=== PATIENT | female | born 1965 | race African-American/Black ===

== ENCOUNTER 2017-08-05 13:55 | Inpatient (IN) | payer OTHER ==
[2017-08-05 14:59] VITALS: BMI 20.3
--- NOTE | 2017-08-05 16:45 | HP ---
CIWA Score - CIWA Score Nausea/Vomitin-Mild Nausea/No Vomiting Muscle Tremors: 4-Moderate,w/Arms Extend Anxiety: 4-Mod. Anxious/Guarded Agitation: 4-Moderately Restless Paroxysmal Sweats: 1-Minimal Palms Moist Orientation: 0-Oriented Tacttile Disturbances: 0-None Auditory Disturbances: 0-None Visual Disturbances: 0-None Headache: 1-Very Mild CIWA-Ar Total Score: 15 Admission ROS BHS - HPI Chief Complaint: withdrawal sx Allergies/Adverse Reactions: Allergies Allergy/AdvReac Type Severity Reaction Status Date / Time No Known Allergies Allergy Verified 08/04/17 11:10 History of Present Illness: 51 YEARS OLD FEMALE WITH LONG HISTORY OF ALCOHOL NICOTINE DEPENDENCE, MOTHER 02/12/17, CUT RIGHT WRIST 03/2017 TREATED AT [facility] HAS COPD AND +PPD, GERD, AND DEPRESSION IS ADMITTED TO DETOX Exam Limitations: No Limitations - Ebola screening Have you traveled outside of the country in the last 21 days: No Have you had contact with anyone from an Ebola affected area: No Have you been sick,other than usual withdrawal symptoms: No Do you have a fever: No - Review of Systems Constitutional: Loss of Appetite, Changes in sleep, Unintentional Wgt. Loss, Unexplained wgt Loss EENT: reports: Blurred Vision (EYE GLASSES AT HOME), Dental Problems (UPPER LOWER AT HOME) Respiratory: reports: SOB with Exertion Cardiac: reports: No Symptoms Reported GI: reports: Nausea, Poor Fluid Intake, Indigestion, Abdominal cramping : reports: No Symptoms Reported Musculoskeletal: reports: Back Pain Integumentary: reports: Change in Color (RIGHT WRIST TENDON REPAIRED) Neuro: reports: Tremors Endocrine: reports: No Symptoms Reported Hematology: reports: No Symptoms Reported Psychiatric: reports: Judgement Intact, Orientated x3, Anxious, Depressed Other Systems: Reviewed and Negative Patient History - Patient Medical History Hx Anemia: Yes Hx Asthma: No Hx Chronic Obstructive Pulmonary Disease (COPD): Yes Hx Cancer: No Hx Cardiac Disorders: No Hx Congestive Heart Failure: No Hx Hypertension: No Hx Hypercholesterolemia: No Hx Pacemaker: No HX Cerebrovascular Accident: No Hx Seizures: No Hx Dementia: No Hx Diabetes: No Hx Gastrointestinal Disorders: No Hx Liver Disease: No Hx Genitourinary Disorders: No Hx Sexually Transmitted Disorders: No Hx Renal Disease (ESRD): No Hx Thyroid Disease: No Hx Human Immunodeficiency Virus (HIV): No Hx Hepatitis C: Yes Hx Depression: Yes Hx Suicide Attempt: Yes (03/2017 CUT RIGHT WRIST) Hx Bipolar Disorder: No Hx Schizophrenia: No - Patient Surgical History Past Surgical History: Yes Hx Neurologic Surgery: No Hx Cataract Extraction: No Hx Cardiac Surgery: No Hx Lung Surgery: No Hx Breast Surgery: No Hx Breast Biopsy: No Hx Abdominal Surgery: No Hx Appendectomy: No Hx Cholecystectomy: No Hx Genitourinary Surgery: No Hx Section: No Hx Orthopedic Surgery: No Hx Hysterectomy: No Other Surgical History: Sx for fibroids in 2003 Sx R wrist tendon repair in Anesthesia Reaction: No - PPD History Previous Implant?: Yes Documented Results: Negative w/o proof Implanted On Prior [facility] Admission?: No PPD to be Administered?: Yes - Reproductive History Patient is a Female of Child Bearing Age (11 -55 yrs old): Yes Last Menstrual Period: 08/05/08 Patient : No - Smoking Cessation Smoking history: Current every day smoker Have you smoked in the past 12 months: Yes Aproximately how many cigarettes per day: 15 Hx Chewing Tobacco Use: No Initiated information on smoking cessation: Yes 'Breaking Loose' booklet given: 08/05/17 - Substance & Tx. History Hx Alcohol Use: Yes Hx Substance Use: No Substance Use Type: Alcohol Hx Substance Use Treatment: Yes (2016 [facility] - Substances Abused Alcohol Route: Oral Frequency: Daily Amount used: 2-3 pints SYLVIE Age of first use: 19 Date of Last Use: 08/05/17 Family Disease History - Family Disease History Family Disease History: Diabetes: Mother (), Brother, [place]: Father ( ), Mother, Other: Father, Mother Admission Physical Exam S - Vital Signs Vital Signs: Vital Signs - 24 hr 08/05/17 14:54 Temperature 98.2 F Pulse Rate 90 Respiratory 22 Rate Blood Pressure 119/73 - Physical General Appearance: Yes: Appropriately Dressed, Alcohol on Breath, Thin, Tremorous, Irritable, Sweating, Anxious HEENTM: Yes: Hearing grossly Normal, Normal ENT Inspection, Normocephalic, Normal Voice Respiratory: Yes: Chest Non-Tender, No Respiratory Distress, No Accessory Muscle Use, Hyperresonant, Inspiration Neck: Yes: Supple, Trachea in good position Breast: Yes: Breasts Symetrical Cardiology: Yes: Regular Rhythm, S1, S2, Tachycardia Abdominal: Yes: Non Tender, Soft, Decreased BS Genitourinary: Yes: Within Normal Limits Back: Yes: Normal Inspection Musculoskeletal: Yes: full range of Motion, Gait Steady, Back pain Extremities: Yes: Normal Range of Motion, Non-Tender, Tremors Neurological: Yes: Fully Oriented, Alert, Motor Strength 5/5, Normal Response, Depressed Affect Integumentary: Yes: Warm Lymphatic: Yes: Within Normal Limits - Diagnostic (1) Alcohol dependence with uncomplicated withdrawal Current Visit: Yes Status: Acute (2) Nicotine dependence Current Visit: Yes Status: Acute Qualifiers: Nicotine product type: cigarettes Substance use status: in withdrawal Qualified Code(s): F17.213 - Nicotine dependence, cigarettes, with withdrawal (3) COPD (chronic obstructive pulmonary disease) Current Visit: Yes Status: Chronic Qualifiers: COPD type: emphysema Emphysema type: unilateral Qualified Code(s ): J43.0 - Unilateral pulmonary emphysema [MacLeod's syndrome] (4) Positive PPD Current Visit: Yes Status: Resolved (5) Weight loss Current Visit: Yes Status: Acute (6) GERD (gastroesophageal reflux disease) Current Visit: Yes Status: Chronic Qualifiers: Esophagitis presence: without esophagitis Qualified Code(s): K21.9 - Gastro-esophageal reflux disease without esophagitis (7) Muscle spasm Current Visit: Yes Status: Chronic (8) Hepatitis C carrier Current Visit: Yes Status: Chronic (9) Depression (emotion) Current Visit: Yes Status: Suspected Qualifiers: Depression Type: dysthymia Qualified Code(s): F34.1 - Dysthymic disorder Cleared for Admission [facility] - Detox or Rehab [facility] Level of Care: Medically Managed Detox Regimen/Protocol: Librium [facility] Breath Alcohol Content Breath Alcohol Content: 0.056 Urine Pregancy Test - Result Urine Test Results: Negative- NO Line Present Urine Drug Screen - Results Drug Screen Negative: No Urine Drug Screen Results: BZO-Benzodiazepines
[2017-08-05] MEDS ORDERED: IBUPROFEN 400 MG TABLET (FP) PO PRN (17:04)
[2017-08-05] MEDS ORDERED: guaiFENesin/D-METHORPHAN HB 10 ML UNIT-DOSE CUPS PO PRN (17:04)
[2017-08-05] MEDS ORDERED: LOPERAMIDE HCL 2 MG CAPSULE PO PRN (17:04)
[2017-08-05] MEDS ORDERED: MAGNESIUM CITRATE 300 ML BOTTLE PO PRN (17:04)
[2017-08-05] MEDS ORDERED: MENTHOL/PHENOL 1 EACH UD MM PRN (17:04)
[2017-08-05] MEDS ORDERED: chlordiazePOXIDE HCL 25 MG CAPSULE PO ONE (17:04)
[2017-08-05] MEDS ORDERED: MAG HYDROX/AL HYDROX/SIMETH 30 ML UNIT-DOSE CUP PO PRN (17:04)
[2017-08-05] MEDS ORDERED: chlordiazePOXIDE HCL 25 MG CAPSULE PO PRN (17:04)
[2017-08-05] MEDS ORDERED: P-EPHED 60MG/TRIPROLIDI 2.5MG TABLET PO PRN (17:04)
[2017-08-05] MEDS ORDERED: MAGNESIUM HYDROX 2400MG/30ML ORAL SUSPENSION 30 ML CUP PO PRN (17:04)
[2017-08-05 20:31] LABS: HIV 1 & 2 AB NEGATIVE; HIV 1 AGp24 NEGATIVE
[2017-08-05] MEDS: SENNOSIDES 8.6MG TABLET (FP) PO SCH (22:44)
[2017-08-05] MEDS: chlordiazePOXIDE HCL 25 MG CAPSULE PO SCH (22:44)
[2017-08-05] MEDS: RANITIDINE HCL 150 MG TABLET (FP) PO SCH (22:44)
[2017-08-05] MEDS: THIAMINE HCL 100 MG TABLET (FP) PO SCH (22:44)
[2017-08-05] MEDS: CYCLOBENZAPRINE HCL 10 MG TABLET (FP) PO SCH (22:44)
[2017-08-05] MEDS: NAPROXEN 500 MG TABLET (FP) PO PRN (23:24)
[2017-08-06] MEDS: CYCLOBENZAPRINE HCL 10 MG TABLET (FP) PO SCH ×3 (05:34→22:23)
[2017-08-06] MEDS: chlordiazePOXIDE HCL 25 MG CAPSULE PO SCH ×4 (05:35→22:23)
[2017-08-06 09:44] LABS: MCH 25.3 pg (25.7-33.7); MCHC 31.2 g/dl (32.0-36.0); MEAN PLT VOLUME 10.1 fl (7.5-11.1); PLATELET COUNT 208 K/MM3 (134-434); RDW 21.9 % (11.6-15.6); WHITE BLOOD COUNT 7.6 K/mm3 (4.0-10.0)
--- NOTE | 2017-08-06 10:00 | PN ---
S CIWA - CIWA Score Nausea/Vomitin Muscle Tremors: 4-Moderate,w/Arms Extend Anxiety: 4-Mod. Anxious/Guarded Agitation: 4-Moderately Restless Paroxysmal Sweats: 3 Orientation: 0-Oriented Tacttile Disturbances: 1-Very Mild Itch/Numbness Auditory Disturbances: 0-None Visual Disturbances: 0-None Headache: 1-Very Mild CIWA-Ar Total Score: 20 BHS Progress Note (SOAP) Subjective: nausea, sweats, interrupted sleep, anxiety, tremors Objective: 08/06/17 10:00 Vital Signs - 24 hr 08/05/17 08/05/17 08/06/17 14:54 21:36 00:30 Temperature 98.2 F 98.2 F Pulse Rate 90 89 Respiratory 22 18 16 Rate Blood Pressure 119/73 124/74 08/06/17 08/06/17 03:30 06:57 Temperature 98.1 F Pulse Rate 78 Respiratory 18 18 Rate Blood Pressure 133/86 Laboratory Tests 08/05/17 08/06/17 13:00 06:00 WBC 7.6 RBC 4.75 Hgb 12.0 Hct 38.5 MCV 81.0 MCH 25.3 L MCHC 31.2 L RDW 21.9 H Plt Count 208 MPV 10.1 HIV 1&2 Antibody Screen Negative HIV P24 Antigen Negative labs pending Assessment: 08/06/17 10:00 withdrawal sx Plan: cont detox, check labs
[2017-08-06 10:49] LABS: ANION GAP 15 (8-16); CALCIUM 9.2 mg/dL (8.5-10.1); CO2 26 mmol/L (21-32); GLUCOSE,RANDOM 102 mg/dL (74-106)
[2017-08-06 10:54] LABS: ALK PHOS 137 U/L (45-117); BILIRUBIN,TOTAL 0.5 mg/dL (0.2-1.0); CREATININE 0.8 mg/dL (0.55-1.02); SGOT/AST 62 U/L (15-37); SGPT/ALT 53 U/L (12-78); TOT PROT 7.8 g/dl (6.4-8.2)
[2017-08-06] MEDS: RANITIDINE HCL 150 MG TABLET (FP) PO SCH ×2 (10:56→22:23)
[2017-08-06] MEDS: PRENATAL VITAMINS W/ FOLIC ACID TABLET (FP) PO SCH (10:56)
[2017-08-06] MEDS: ACETAMINOPHEN 325 MG TABLET (FP) PO PRN (10:57)
[2017-08-06] MEDS: NICOTINE 21 MG/24 HOURS TOPICAL PATCH TD SCH (10:58)
[2017-08-06] MEDS: ALBUTEROL SO4 6.7 GM HFA INHALER IH PRN ×2 (10:59→15:46)
[2017-08-06] MEDS: hydrOXYzine PAMOATE 50 MG CAPSULE (FP) PO PRN (10:59)
--- NOTE | 2017-08-06 15:01 | CONSULT ---
[facility] Psychiatric Consult - Data Date of interview: 08/06/17 Admission source: [facility] Identifying data: First admission to [facility] for this 51 y/o female seeking detox treatment on for alcohol dependence.Patient is ,a mother of two,domiciled,unemployed and supported on welfare. Substance Abuse History: Discussed with patient in this interview.She confirms this pattern of alcohol dependence. Smoking Cessation. Smoking history: Current every day smoker. Have you smoked in the past 12 months: Yes. Aproximately how many cigarettes per day: 15. Hx Chewing Tobacco Use: No. Initiated information on smoking cessation: Yes. 'Breaking Loose' booklet given : 08/05/17. - Substance & Tx. History. Hx Alcohol Use: Yes. Hx Substance Use : No. Substance Use Type: Alcohol. Hx Substance Use Treatment: Yes ([facility]). - Substances Abused. Alcohol. Route: Oral. Frequency: Daily. Amount used: 2-3 pints SYLVIE. Age of first use: 19. Date of Last Use: Medical History: Multiple co-morbidities : migraine headaches,hepatitis C,COPD, GERD,Yuan's palsy,anemia,past surgery for fibroids,history of positive PPD and orthosurgery for tendon repair (severe laceration from a broken mirror) in right wrist in january 2017.Patient states,in this interview,that the incident was an accident not a suicide attempt. Psychiatric History: Patient denies history of psychiatric hospitalizations.She endorses the diagnosis of MDD,established by her psychiatrist at the [facility] health clinic in [facility].Ms Mcgraw is " not sure " about her prescribed medications.Denies history of suicide attempts. Physical/Sexual Abuse/Trauma History: No reported history of abuse. Additional Comment: Urine Drug Screen Results: BZO-Benzodiazepines.Noted. Mental Status Exam - Mental Status Exam Alert and Oriented to: Time, Place, Person Cognitive Function: Good Patient Appearance: Well Groomed Mood: Angry (argues that she does not get enough food), Irritable Affect: Labile Patient Behavior: Fatigued, Impulsive (needy,demanding), Talkative ( argumentative) Speech Pattern: Clear Voice Loudness: Normal Thought Process: Goal Oriented Thought Disorder: Not Present Hallucinations: Denies Suicidal Ideation: Denies Homicidal Ideation: Denies Insight/Judgement: Poor Sleep: Poorly, Difficulty falling asleep Appetite: Good Muscle strength/Tone: Normal Gait/Station: Normal Psychiatric Findings - Problem List ([place] 1, 2,3) (1) Alcohol dependence with uncomplicated withdrawal Current Visit: Yes Status: Acute (2) Nicotine dependence Current Visit: Yes Status: Acute Qualifiers: Nicotine product type: cigarettes Substance use status: in withdrawal Qualified Code(s): F17.213 - Nicotine dependence, cigarettes, with withdrawal (3) Substance induced mood disorder Current Visit: Yes Status: Acute (4) Personality disorder, unspecified Current Visit: Yes Status: Suspected (5) COPD (chronic obstructive pulmonary disease) Current Visit: Yes Status: Chronic Qualifiers: COPD type: emphysema Emphysema type: unilateral Qualified Code(s ): J43.0 - Unilateral pulmonary emphysema [MacLeod's syndrome] (6) GERD (gastroesophageal reflux disease) Current Visit: Yes Status: Chronic Qualifiers: Esophagitis presence: without esophagitis Qualified Code(s): K21.9 - Gastro-esophageal reflux disease without esophagitis (7) Hepatitis C carrier Current Visit: Yes Status: Chronic (8) Positive PPD Current Visit: Yes Status: Resolved - Initial Treatment Plan Initial Treatment Plan: Psychoeducation.Detoxification.Observation.Medications search : not helpful ; last refills are dated 04/22/17 ; only medications for pain.No psychotropics found.
[2017-08-06] MEDS: NICOTINE POLACRILEX 4 MG GUM BC PRN ×2 (15:47→22:27)
[2017-08-06 17:43] LABS: URINE APPEARANCE SLCLOUDY; URINE BILIRUBIN NEGATIVE (NEGATIVE); URINE BLOOD 2+ (NEGATIVE); URINE COLOR YELLOW; URINE GLUCOSE (UA) NEGATIVE (NEGATIVE); URINE KETONE TRACE (NEGATIVE); URINE LEUK ESTERASE TRACE (NEGATIVE); URINE NITRITE NEGATIVE (NEGATIVE); URINE PROTEIN NEGATIVE (NEGATIVE); URINE UROBILINOGEN NEGATIVE mg/dL (0.2-1.0)
[2017-08-06 17:57] LABS: URINE BACTERIA RARE /hpf (NONE SEEN); URINE MUCUS RARE; URINE RBC 1 /hpf (0-3); URINE WBC 2 /hpf (3-5)
[2017-08-06] MEDS: THIAMINE HCL 100 MG TABLET (FP) PO SCH (22:23)
[2017-08-06] MEDS: SENNOSIDES 8.6MG TABLET (FP) PO SCH (22:23)
[2017-08-06] MEDS: diphenhydrAMINE HCL 50 MG CAPSULE PO PRN (22:25)
[2017-08-06] MEDS: NAPROXEN 500 MG TABLET (FP) PO PRN (22:25)
[2017-08-07] MEDS: CYCLOBENZAPRINE HCL 10 MG TABLET (FP) PO SCH ×3 (06:04→22:49)
[2017-08-07] MEDS: chlordiazePOXIDE HCL 25 MG CAPSULE PO SCH ×3 (06:05→16:57)
[2017-08-07] MEDS: ALBUTEROL SO4 6.7 GM HFA INHALER IH PRN ×2 (06:06→20:40)
[2017-08-07] MEDS: hydrOXYzine PAMOATE 50 MG CAPSULE (FP) PO PRN ×3 (07:33→19:46)
[2017-08-07] MEDS: ALBUTEROL SO4 2.5/IPRATROPIUM 0.5 INH SOL 3 ML VIAL.NEB. NEB PRN (07:33)
--- NOTE | 2017-08-07 09:31 | EKG ---
Test Reason : Blood Pressure : / mmHG Vent. Rate : 084 BPM Atrial Rate : 084 BPM P-R Int : 164 ms QRS Dur : 082 ms QT Int : 402 ms P-R-T Axes : 075 038 056 degrees QTc Int : 475 ms NORMAL SINUS RHYTHM NORMAL ECG NO PREVIOUS ECGS AVAILABLE Confirmed by MD RUTHY, JANINE ([id number]) on 08/07/2017 9:31:38 AM Referred By: Confirmed By:JANINE BLISS MD
[2017-08-07] MEDS: RANITIDINE HCL 150 MG TABLET (FP) PO SCH ×2 (10:58→22:49)
[2017-08-07] MEDS: PRENATAL VITAMINS W/ FOLIC ACID TABLET (FP) PO SCH (10:58)
[2017-08-07] MEDS: NICOTINE 21 MG/24 HOURS TOPICAL PATCH TD SCH (10:58)
[2017-08-07] MEDS: DOCUSATE SODIUM 100 MG CAPSULE (FP) PO PRN ×2 (11:22→22:49)
--- NOTE | 2017-08-07 13:08 | PN ---
S CIWA - CIWA Score Nausea/Vomitin Muscle Tremors: 2 Anxiety: 2 Agitation: 2 Paroxysmal Sweats: 2 Orientation: 0-Oriented Tacttile Disturbances: 1-Very Mild Itch/Numbness Auditory Disturbances: 0-None Visual Disturbances: 1-Very Mild Sensitivity Headache: 2-Mild CIWA-Ar Total Score: 14 S Progress Note (SOAP) Subjective: interrupted sleep, shakes, sweats, constipation Objective: 08/07/17 13:07 Vital Signs - 8 hr 08/07/17 08/07/17 06:55 10:00 Temperature 97.8 F 96.1 F L Pulse Rate 67 74 Respiratory 16 18 Rate Blood Pressure 125/83 136/87 Laboratory Last Values WBC 7.6 K/mm3 (4.0-10.0) 08/06/17 06:00 RBC 4.75 M/mm3 (3.60-5.2) 08/06/17 06:00 Hgb 12.0 GM/dL (10.7-15.3) 08/06/17 06:00 Hct 38.5 % (32.4-45.2) 08/06/17 06:00 MCV 81.0 fl (80-96) 08/06/17 06:00 MCH 25.3 pg (25.7-33.7) L 08/06/17 06:00 MCHC 31.2 g/dl (32.0-36.0) L 08/06/17 06:00 RDW 21.9 % (11.6-15.6) H 08/06/17 06:00 Plt Count 208 K/MM3 (134-434) 08/06/17 06:00 MPV 10.1 fl (7.5-11.1) 08/06/17 06:00 Sodium 134 mmol/L (136-145) L 08/06/17 06:00 Potassium 4.8 mmol/L (3.5-5.1) 08/06/17 06:00 Chloride 93 mmol/L (98-107) L 08/06/17 06:00 Carbon Dioxide 26 mmol/L (21-32) 08/06/17 06:00 Anion Gap 15 (8-16) 08/06/17 06:00 BUN 18 mg/dL (7-18) 08/06/17 06:00 Creatinine 0.8 mg/dL (0.55-1.02) 08/06/17 06:00 Creat Clearance w eGFR > 60 (>60) 08/06/17 06:00 Random Glucose 102 mg/dL (74-106) 08/06/17 06:00 Calcium 9.2 mg/dL (8.5-10.1) 08/06/17 06:00 Total Bilirubin 0.5 mg/dL (0.2-1.0) 08/06/17 06:00 AST 62 U/L (15-37) H 08/06/17 06:00 ALT 53 U/L (12-78) 08/06/17 06:00 Alkaline Phosphatase 137 U/L (45-117) H 08/06/17 06:00 Total Protein 7.8 g/dl (6.4-8.2) 08/06/17 06:00 Albumin 4.0 g/dl (3.4-5.0) 08/06/17 06:00 Urine Color Yellow 08/05/17 17:00 Urine Appearance Slcloudy 08/05/17 17:00 Urine pH 5.0 (5.0-8.0) 08/05/17 17:00 Ur Specific [place] 1.020 (1.005-1.025) 08/05/17 17:00 Urine Protein Negative (NEGATIVE) 08/05/17 17:00 Urine Glucose (UA) Negative (NEGATIVE) 08/05/17 17:00 Urine Ketones Trace (NEGATIVE) H 08/05/17 17:00 Urine Blood 2+ (NEGATIVE) H 08/05/17 17:00 Urine Nitrite Negative (NEGATIVE) 08/05/17 17:00 Urine Bilirubin Negative (NEGATIVE) 08/05/17 17:00 Urine Urobilinogen Negative mg/dL (0.2-1.0) 08/05/17 17:00 Ur Leukocyte Esterase Trace (NEGATIVE) 08/05/17 17:00 Urine RBC 1 /hpf (0-3) 08/05/17 17:00 Urine WBC 2 /hpf (3-5) 08/05/17 17:00 Ur Epithelial Cells Moderate /hpf (FEW) 08/05/17 17:00 Urine Bacteria Rare /hpf (NONE SEEN) 08/05/17 17:00 Urine Mucus Rare 08/05/17 17:00 RPR Titer Nonreactive (NONREACTIVE) 08/06/17 06:00 HIV 1&2 Antibody Screen Negative 08/05/17 13:00 HIV P24 Antigen Negative 08/05/17 13:00 labs noted Assessment: 08/07/17 13:07 withdrawal sx Plan: continue detox
[2017-08-07] MEDS: NAPROXEN 500 MG TABLET (FP) PO PRN ×2 (14:30→19:46)
[2017-08-07] MEDS: NICOTINE POLACRILEX 4 MG GUM BC PRN ×2 (18:34→22:51)
[2017-08-07] MEDS: ACETAMINOPHEN 325 MG TABLET (FP) PO PRN (20:39)
[2017-08-07] MEDS: diphenhydrAMINE HCL 50 MG CAPSULE PO PRN (22:48)
[2017-08-07] MEDS: SENNOSIDES 8.6MG TABLET (FP) PO SCH (22:49)
[2017-08-07] MEDS: chlordiazePOXIDE 5 MG CAPSULE PO SCH (22:49)
[2017-08-07] MEDS: THIAMINE HCL 100 MG TABLET (FP) PO SCH (22:49)
[2017-08-08] MEDS: ALBUTEROL SO4 6.7 GM HFA INHALER IH PRN ×2 (01:19→22:49)
[2017-08-08] MEDS: CYCLOBENZAPRINE HCL 10 MG TABLET (FP) PO SCH ×3 (05:43→22:26)
[2017-08-08] MEDS: chlordiazePOXIDE 5 MG CAPSULE PO SCH ×3 (05:43→17:15)
[2017-08-08] MEDS: hydrOXYzine PAMOATE 50 MG CAPSULE (FP) PO PRN (05:59)
[2017-08-08] MEDS: NICOTINE POLACRILEX 4 MG GUM BC PRN ×3 (06:00→22:29)
[2017-08-08] MEDS: NAPROXEN 500 MG TABLET (FP) PO PRN ×2 (07:15→22:26)
[2017-08-08] MEDS: ALBUTEROL SO4 2.5/IPRATROPIUM 0.5 INH SOL 3 ML VIAL.NEB. NEB PRN (07:27)
[2017-08-08] MEDS: PRENATAL VITAMINS W/ FOLIC ACID TABLET (FP) PO SCH (10:17)
[2017-08-08] MEDS: NICOTINE 21 MG/24 HOURS TOPICAL PATCH TD SCH (10:18)
[2017-08-08] MEDS: RANITIDINE HCL 150 MG TABLET (FP) PO SCH ×2 (10:18→22:26)
[2017-08-08] MEDS: ACETAMINOPHEN 325 MG TABLET (FP) PO PRN ×2 (10:19→22:52)
[2017-08-08] MEDS: DOCUSATE SODIUM 100 MG CAPSULE (FP) PO PRN ×2 (10:22→22:26)
[2017-08-08] MEDS ORDERED: SUMAtriptan SUCCINATE 50 MG TABLET PO PRN (12:33)
--- NOTE | 2017-08-08 13:27 | PN ---
BHS Progress Note (SOAP) Subjective: Irritable,interrupted sleep,restless,sweating Objective: 08/08/17 13:26 Vital Signs - 8 hr 08/08/17 08/08/17 06:49 10:00 Temperature 97.6 F 97.9 F Pulse Rate 68 90 Respiratory 18 18 Rate Blood Pressure 130/70 134/75 Laboratory Last Values WBC 7.6 K/mm3 (4.0-10.0) 08/06/17 06:00 RBC 4.75 M/mm3 (3.60-5.2) 08/06/17 06:00 Hgb 12.0 GM/dL (10.7-15.3) 08/06/17 06:00 Hct 38.5 % (32.4-45.2) 08/06/17 06:00 MCV 81.0 fl (80-96) 08/06/17 06:00 MCH 25.3 pg (25.7-33.7) L 08/06/17 06:00 MCHC 31.2 g/dl (32.0-36.0) L 08/06/17 06:00 RDW 21.9 % (11.6-15.6) H 08/06/17 06:00 Plt Count 208 K/MM3 (134-434) 08/06/17 06:00 MPV 10.1 fl (7.5-11.1) 08/06/17 06:00 Sodium 134 mmol/L (136-145) L 08/06/17 06:00 Potassium 4.8 mmol/L (3.5-5.1) 08/06/17 06:00 Chloride 93 mmol/L (98-107) L 08/06/17 06:00 Carbon Dioxide 26 mmol/L (21-32) 08/06/17 06:00 Anion Gap 15 (8-16) 08/06/17 06:00 BUN 18 mg/dL (7-18) 08/06/17 06:00 Creatinine 0.8 mg/dL (0.55-1.02) 08/06/17 06:00 Creat Clearance w eGFR > 60 (>60) 08/06/17 06:00 Random Glucose 102 mg/dL (74-106) 08/06/17 06:00 Calcium 9.2 mg/dL (8.5-10.1) 08/06/17 06:00 Total Bilirubin 0.5 mg/dL (0.2-1.0) 08/06/17 06:00 AST 62 U/L (15-37) H 08/06/17 06:00 ALT 53 U/L (12-78) 08/06/17 06:00 Alkaline Phosphatase 137 U/L (45-117) H 08/06/17 06:00 Total Protein 7.8 g/dl (6.4-8.2) 08/06/17 06:00 Albumin 4.0 g/dl (3.4-5.0) 08/06/17 06:00 Urine Color Yellow 08/05/17 17:00 Urine Appearance Slcloudy 08/05/17 17:00 Urine pH 5.0 (5.0-8.0) 08/05/17 17:00 Ur Specific [place] 1.020 (1.005-1.025) 08/05/17 17:00 Urine Protein Negative (NEGATIVE) 08/05/17 17:00 Urine Glucose (UA) Negative (NEGATIVE) 08/05/17 17:00 Urine Ketones Trace (NEGATIVE) H 08/05/17 17:00 Urine Blood 2+ (NEGATIVE) H 08/05/17 17:00 Urine Nitrite Negative (NEGATIVE) 08/05/17 17:00 Urine Bilirubin Negative (NEGATIVE) 08/05/17 17:00 Urine Urobilinogen Negative mg/dL (0.2-1.0) 08/05/17 17:00 Ur Leukocyte Esterase Trace (NEGATIVE) 08/05/17 17:00 Urine RBC 1 /hpf (0-3) 08/05/17 17:00 Urine WBC 2 /hpf (3-5) 08/05/17 17:00 Ur Epithelial Cells Moderate /hpf (FEW) 08/05/17 17:00 Urine Bacteria Rare /hpf (NONE SEEN) 08/05/17 17:00 Urine Mucus Rare 08/05/17 17:00 RPR Titer Nonreactive (NONREACTIVE) 08/06/17 06:00 HIV 1&2 Antibody Screen Negative 08/05/17 13:00 HIV P24 Antigen Negative 08/05/17 13:00 labs noted Assessment: 08/08/17 13:27 Withdrawal sx. Plan: Continue detox
[2017-08-08] MEDS: LACTULOSE 20 GM/30 ML UDC (FOR ORAL USE ONLY) PO SCH ×2 (15:28→22:26)
[2017-08-08] MEDS: THIAMINE HCL 100 MG TABLET (FP) PO SCH (22:26)
[2017-08-08] MEDS: diphenhydrAMINE HCL 50 MG CAPSULE PO PRN (22:26)
[2017-08-08] MEDS: chlordiazePOXIDE HCL 10 MG CAPSULE PO SCH (22:26)
[2017-08-08] MEDS: SENNOSIDES 8.6MG TABLET (FP) PO SCH (22:28)
[2017-08-09] MEDS: chlordiazePOXIDE HCL 10 MG CAPSULE PO SCH (06:00)
[2017-08-09] MEDS: CYCLOBENZAPRINE HCL 10 MG TABLET (FP) PO SCH (06:00)
--- NOTE | 2017-08-09 08:45 | DS ---
[facility] Detox Discharge Summary Admission Date: 08/05/17 Discharge Date: 08/09/17 - History Present History: Alcohol Dependence - Physical Exam Results Vital Signs: Vital Signs Temperature 97.5 F L 08/09/17 06:00 Pulse Rate 69 08/09/17 06:00 Respiratory Rate 18 08/09/17 06:00 Blood Pressure 121/81 08/09/17 06:00 O2 Sat by Pulse Oximetry (%) - Treatment Hospital Course: Detox Protocol Followed, Detoxed Safely, Responded well, Discharged Condition Good, Rehab Referral Accepted - Medication Discharge Medications: Ambulatory Orders Sumatriptan Succinate [Imitrex -] 50 mg PO PRN PRN 08/04/17 - Diagnosis (1) Alcohol dependence with uncomplicated withdrawal Current Visit: Yes Status: Chronic (2) Nicotine dependence Current Visit: Yes Status: Chronic Qualifiers: Nicotine product type: cigarettes Substance use status: uncomplicated Qualified Code(s): F17.210 - Nicotine dependence, cigarettes, uncomplicated (3) Substance induced mood disorder Current Visit: Yes Status: Chronic (4) Weight loss Current Visit: Yes Status: Chronic (5) COPD (chronic obstructive pulmonary disease) Current Visit: Yes Status: Chronic Qualifiers: COPD type: emphysema Emphysema type: unilateral Qualified Code(s ): J43.0 - Unilateral pulmonary emphysema [MacLeod's syndrome] (6) GERD (gastroesophageal reflux disease) Current Visit: Yes Status: Chronic Qualifiers: Esophagitis presence: without esophagitis Qualified Code(s): K21.9 - Gastro-esophageal reflux disease without esophagitis (7) Hepatitis C carrier Current Visit: Yes Status: Chronic (8) Muscle spasm Current Visit: Yes Status: Chronic (9) Depression (emotion) Current Visit: Yes Status: Suspected Qualifiers: Depression Type: dysthymia Qualified Code(s): F34.1 - Dysthymic disorder (10) Personality disorder, unspecified Current Visit: Yes Status: Suspected (11) Positive PPD Current Visit: Yes Status: Resolved - AMA Did Patient Leave Against Medical Advice: No
[2017-08-09] MEDS: PRENATAL VITAMINS W/ FOLIC ACID TABLET (FP) PO SCH (09:44)
[2017-08-09] MEDS: RANITIDINE HCL 150 MG TABLET (FP) PO SCH (09:45)
[2017-08-09] MEDS: LACTULOSE 20 GM/30 ML UDC (FOR ORAL USE ONLY) PO SCH (09:47)
[2017-08-09] MEDS: NICOTINE 21 MG/24 HOURS TOPICAL PATCH TD SCH (09:47)
[2017-08-09 10:18] VITALS: BP 124/89; PULSE 79; TEMP 98.8
== END 2017-08-09 09:54 | disposition home or self-care (01) | DRG 775 ==
LOC: YASAS 13:55 → Y6N 16:12
PROVIDERS: ADMIT Internal Medicine Addiction Medicine; ATTEND Internal Medicine Addiction Medicine
PROC: HZ2ZZZZ Detoxification Services for Substance Abuse Treatment (ICD-10-PCS; principal; 2017-08-05)
DX: F10.230 Alcohol dependence with withdrawal, uncomplicated (principal); F17.210 Nicotine dependence, cigarettes, uncomplicated; F19.24 Other psychoactive substance dependence with psychoactive substance-induced mood disorder; F60.9 Personality disorder, unspecified; F34.1 Dysthymic disorder; K21.9 Gastro-esophageal reflux disease without esophagitis; J43.0 Unilateral pulmonary emphysema [MacLeod's syndrome]; B18.2 Chronic viral hepatitis C; D64.9 Anemia, unspecified; M62.838 Other muscle spasm; R76.11 Nonspecific reaction to tuberculin skin test without active tuberculosis; Z87.898 Personal history of other specified conditions; Z91.5 Personal history of self-harm
CPT/HCPCS: 36415; 71020-TC; 80053; 81003; 81015; 85027; 86593; 87389; 93005; 93010; 94640